=== PATIENT | male | born 1995 | race Caucasian/White ===

== ENCOUNTER 2022-07-28 12:27 | Emergency (ER) | payer MEDICAID ==
[~2022-07-28] VITALS: Ht 180.3 cm; Wt 84.8 kg
[2022-07-28 12:44] VITALS: BP 127/83
[2022-07-28] MEDS ORDERED: CLOT15CR27 TP (14:26)
== END 2022-07-28 14:34 | disposition home or self-care (01) ==
LOC: ER 12:55
DX: B35.6 Tinea cruris (principal)
CPT/HCPCS: 99282